=== PATIENT | female | born 1985 | race Caucasian/White ===

== ENCOUNTER 2016-06-15 08:30 | Inpatient (IN) | payer BC ==
--- NOTE | 2016-06-15 08:35 | PCM.LDHP ---
L&D History of Present Illness - General Date of Service: 06/15/16 Admit Problem/Dx: Patient Status Order with Admit Dx/Problem 06/15/16 08:34 Patient Status [ADT] Routine Patient Status: Refer to Observation Admission Diagnosis/Problem: Normal Reason for Admit: normal Nurse Unit Type: Labor and Delivery Admitting Physician: Charmaine Swift Attending Physician: Charmaine Swift Medicare 96 Hour Certification Statement: This Patient is Admitted for Inpatient Services and is Medically Appropriate and Meets Medical Necessity for Inpatient Admission. I Reasonably Expect the Patient Will Require Inpatient Services That Span a Period of Time Over 2 Midnights. My Rationale for Medically Necessary Inpatient Care Will Be Found in the Admission History & Physical and Progress Notes. I Reasonably Expect the Patient to be Discharged or Transferred Within 96 Hours After Admission to This [facility]. Admission Diagnosis/Problem Admission Diagnosis/Problem Normal Source of Information: Patient History Limitations: Reports: No limitations - History of Present Illness Introduction:: Patient is a 30 y/o at 38 1/7 wks who presents today with SROM. Occurred at about 0600 this morning. Some contractions, but overall these are mild. No other concerns. 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 (Approximate): Psychiatric History: Reports: Anxiety, Depression Endocrine/Metabolic History: Reports: Diabetes, gestational, Hypothyroidism - Past Surgical History GI Surgical History: Reports: Cholecystectomy Social & Family History - Family History Family Medical History: Noncontributory - Tobacco Use Smoking Status *Q: Never Smoker - Alcohol Use Alcohol Use History: No - Recreational Drug Use Recreational Drug Use: No H&P Review of Systems - Review of Systems: Review Of Systems: See Below General: Reports: no symptoms Pulmonary: Reports: No Symptoms Cardiovascular: Reports: no symptoms Gastrointestinal: Reports: No symptoms Genitourinary: Reports: no symptoms Musculoskeletal: Reports: no symptoms Neurological: Reports: No Symptoms L&D Exam - Exam Exam: See Below - OB Specific Contraction Intensity: Moderate movement: active heart tones: present heart tones per min: 140 Heart Rate (FHR) Variability: Moderate (6-25 bmp) Presentation: Vertex - Grimaldo Score Grimaldo Score Cervix Position: Midposition Grimaldo Score Consistency: Medium Grimaldo Score Effacement: 31-50% Grimaldo Score Dilation: 3-4 cm Grimaldo Score 's Station: -2 Grimaldo Score Total: 6 - Exam General: alert, oriented, cooperative Lungs: Clear to auscultation, Normal respiratory effort Cardiovascular: regular rate, regular rhythm Abdomen: soft Genitourinary: Normal external exam Extremities: normal inspection Skin: warm, dry, intact - Patient Data Result Diagrams: 06/15/16 08:44 - Problem List (1) 38 weeks gestation of SNOMED Code(s): 87161711 ICD Code: Z3A.38 - 38 WEEKS GESTATION OF Status: Acute Current Visit: Yes (2) SROM (spontaneous rupture of membranes) SNOMED Code(s): 276254164 ICD Code: [id number] - Status: Acute Current Visit: Yes (3) Hypothyroid SNOMED Code(s): 29571755 ICD Code: E03.9 - HYPOTHYROIDISM, UNSPECIFIED Status: Acute Current Visit : Yes Qualifiers: Hypothyroidism type: unspecified Qualified Code(s): E03.9 - Hypothyroidism , unspecified (4) Depression SNOMED Code(s): 36700009 ICD Code: F32.9 - MAJOR DEPRESSIVE DISORDER, SINGLE EPISODE, UNSPECIFIED Status: Acute Current Visit: Yes Qualifiers: Depression Type: major depressive disorder Active/Remission status: currently active Major depression episode severity: moderate (5) Gestational diabetes SNOMED Code(s): 30980972 ICD Code: O24.419 - GESTATIONAL DIABETES MELLITUS IN , UNSP CONTROL Status: Acute Current Visit: Yes Qualifiers: Gestational diabetes mellitus control: diet-controlled Trimester: third trimester Qualified Code(s): O24.410 - Gestational diabetes mellitus in , diet controlled Problem List Initiated/Reviewed/Updated: Yes Orders Last 24hrs: Active Orders 24 hr Category Date Time Status Patient Status [ADT] Routine ADT 06/15/16 08:34 Ordered Activity as Tolerated [RC] PFP Care 06/15/16 08:33 Ordered Communication Order [RC] ASDIRECTED Care 06/15/16 08:33 Ordered Heart Tones [RC] ASDIRECTED Care 06/15/16 08:34 Ordered Notify Provider [RC] PFP Care 06/15/16 08:33 Ordered Notify Provider [RC] PRN Care 06/15/16 08:33 Ordered Peripheral IV Care [RC] . DIRECTED Care 06/15/16 08:34 Ordered Vital Signs [RC] PER UNIT ROUTINE Care 06/15/16 08:33 Ordered Regular Diet [DIET] Diet 06/15/16 Lunch Ordered CBC W/O DIFF,HEMOGRAM [HEME] Stat Lab 06/15/16 08:33 Ordered TYPE AND SCREEN [BBK] Stat Lab 06/15/16 08:33 Ordered Lactated Ringers [Ringers, Lactated] 1,000 ml Med 06/15/16 08:45 Ordered IV ASDIRECTED Nalbuphine [Nubain] Med 06/15/16 08:33 Ordered 10 mg IVPUSH Q2H PRN Ondansetron [Zofran] Med 06/15/16 08:33 Ordered 4 mg IVPUSH Q4H PRN Oxytocin/Lactated Ringers [Pitocin in LR 10 Units/1,000 Med 06/15/16 08:45 Ordered ML] 10 unit in 1,000 ml IV TITRATE Sodium Chloride 0.9% [Saline Flush] Med 06/15/16 08:33 Ordered 10 ml FLUSH ASDIRECTED PRN Electronic Heart Tones Ext w TOCO [WOMSER] Oth 06/15/16 08:33 Ordered Routine Electronic Heart Tones Internal [WOMSER] Per Unit Oth 06/15/16 08:33 Ordered Routine Peripheral IV Insertion Adult [OM.PC] Routine Oth 06/15/16 08:33 Ordered Resuscitation Status Routine Resus Stat 06/15/16 08:33 Ordered Assessment/Plan Comment:: 30 y/o admitted at 38 1/7 wks with SROM * CBC and T&S * GBS negative, no need for antibiotics * Pain management per patient preference * Continue home Prozac and Synthroid * Blood sugars every 4 hours for GODMA1 * Anticipate
[2016-06-15] MEDS ORDERED: Ondansetron 4 MG/2 ML SDV IVPUSH PRN ×2 (08:41→10:22)
--- NOTE | 2016-06-15 09:52 | PCM.PREANE ---
Preanesthetic Assessment - Anesthesia/Transfusion/Family Hx Anesthesia History: Prior Anesthesia Without Reaction Transfusion History: No Prior Transfusion(s) - Physical Assessment O2 Sat by Pulse Oximetry: 100 Respiratory Rate: 16 Vital Signs: Last Vital Signs Temp 36.3 C 06/15/16 08:33 Pulse 92 06/15/16 08:33 Resp 16 06/15/16 08:33 BP 116/70 06/15/16 08:33 Pulse Ox 100 06/15/16 08:33 Height: 1.75 m Weight: 110.223 kg - Lab Values: Laboratory Last Values WBC 13.08 K/mm3 (3.98-10.04) H 06/15/16 08:44 RBC 5.15 M/mm3 (3.98-5.22) 06/15/16 08:44 Hgb 13.9 gm/L (11.2-15.7) 06/15/16 08:44 Hct 41.0 % (34.1-44.9) 06/15/16 08:44 MCV 79.6 fl (79.4-94.8) 06/15/16 08:44 MCH 27.0 pg (25.6-32.2) 06/15/16 08:44 MCHC 33.9 g/dl (32.2-35.5) 06/15/16 08:44 RDW Std Deviation 41.9 fL (36.4-46.3) 06/15/16 08:44 Plt Count 208 K/mm3 (182-369) 06/15/16 08:44 MPV 10.3 fl (9.4-12.3) 06/15/16 08:44 POC Glucose 128 mg/dL (70-105) H 06/15/16 08:42 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: Psychiatric History: Reports: Depression Endocrine/Metabolic History: Reports: Diabetes, gestational, Hypothyroidism - SUBSTANCE USE Smoking Status *Q: Never Smoker Second Hand Smoke Exposure: No Recreational Drug Use History: No - CURRENT (IN HOUSE) MEDS Current Meds: Current Medications Ephedrine Sulfate (Ephedrine Sulfate) 5 mg IVPUSH ASDIRECTED PRN PRN Reason: Hypotension Fentanyl (Sublimaze) 100 mcg EPIDUR Q3H PRN PRN Reason: Pain Fentanyl/Bupivacaine HCl (Fentanyl/Bupivacaine/Ns 2 Mcg-0.125% 100 Ml) 100 ml EPIDUR ASDIRECTED DARREN Lactated Ringer's (Ringers, Lactated) 1,000 mls @ 100 mls/hr IV ASDIRECTED DARREN Oxytocin/Lactated Ringer's (Pitocin In Lr 10 Units/1,000 Ml) 10 unit in 1,000 mls @ 500 mls/hr IV TITRATE DARREN PRN Reason: Protocol Nalbuphine HCl (Nubain) 10 mg IVPUSH Q2H PRN PRN Reason: Pain (moderate 4-6) Ondansetron HCl (Zofran) 4 mg IVPUSH Q4H PRN PRN Reason: Nausea/Vomiting Ondansetron HCl (Zofran) 4 mg IVPUSH ONETIME PRN PRN Reason: Nausea/Vomiting Sodium Chloride (Saline Flush) 10 ml FLUSH ASDIRECTED PRN PRN Reason: Keep Vein Open Preanesthetic Assessment - ANESTHESIA/TRANSFUSION/FAMILY HX Anesthesia/Transfusion History: No Prior Transfusion(s), Prior Anesthesia Type of Anesthesia Reaction: Denies: Allergy, Anesthesia Awareness, Excessive Somnolence, Excessive Nausea/Vomiting, Excessive Itching, Excessive Shivering, Malignant Hyperthermia, Malignant Hyperthermia, Family History, Pseudocholinesterase Deficiency, Pseudocholinesterase Deficiency, Family History of, Urinary Retention, Unknown, Other (see below) Family History of Anesthesia Reaction: No Intubation History: Unknown - REVIEW OF SYSTEMS Constitutional: Reports: no symptoms 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 placed on prednisone.) Cardiovascular: Reports: no symptoms GI: Reports: no symptoms Other: Reports: Diabetes (gestational DM AM 0700 LA=922), Thyroid Problems ( hypothyroid), Depression, Anxiety - PHYSICAL ASSESSMENT HR: 92 O2 Sat by Pulse Oximetry: 100 RR: 16 BP: 116/70 Temp: 36.3 C Vital Signs: Last Vital Signs Temp 36.3 C 06/15/16 08:33 Pulse 92 06/15/16 08:33 Resp 16 06/15/16 08:33 BP 116/70 06/15/16 08:33 Pulse Ox 100 06/15/16 08:33 Height: 1.75 m Weight: 110.223 kg NPO Status Date: 06/15/16 NPO Status Time: 08:00 ASA Class: 2 Mental Status: Alert & Oriented x3 Airway Class: Mallampati = 2 Dentition: Reports: Normal Dentition, [place](s), Car[place] Thyro-Mental Finger Breadths: 3 Mouth Opening Finger Breadths: 3 ROM/Head Extension: Full Respiratory Status: lungs clear to auscultation bilaterally Cardiovascular Status: regular rate & rhythm, normal S1, S2, no murmur, blood pressure WNL - LAB Values: Laboratory Last Values WBC 13.08 K/mm3 (3.98-10.04) H 06/15/16 08:44 RBC 5.15 M/mm3 (3.98-5.22) 06/15/16 08:44 Hgb 13.9 gm/L (11.2-15.7) 06/15/16 08:44 Hct 41.0 % (34.1-44.9) 06/15/16 08:44 MCV 79.6 fl (79.4-94.8) 06/15/16 08:44 MCH 27.0 pg (25.6-32.2) 06/15/16 08:44 MCHC 33.9 g/dl (32.2-35.5) 06/15/16 08:44 RDW Std Deviation 41.9 fL (36.4-46.3) 06/15/16 08:44 Plt Count 208 K/mm3 (182-369) 06/15/16 08:44 MPV 10.3 fl (9.4-12.3) 06/15/16 08:44 POC Glucose 128 mg/dL (70-105) H 06/15/16 08:42 Reviewed and noted. - ANESTHESIA PLAN Preop Beta Lizz: No Anesthesia Type Planned: Epidural - ACKNOWLEDGEMENTS Pt an Appropriate Candidate for the Planned Anesthesia: Yes Alternatives and Risks of Anesthesia Discussed w Pt/Guardian: Yes Pt/Guardian Understands and Agrees with Anesthesia Plan: Yes
[2016-06-15] MEDS ORDERED: Oxytocin/Lactated Ringers 10 UNIT/1,000 ML BAG IV SCH ×2 (10:00→16:15)
[2016-06-15] MEDS ORDERED: Sodium Chloride 0.9% 10 ML Syringe FLUSH PRN (10:00)
[2016-06-15] MEDS ORDERED: Nalbuphine 20 MG/1 ML Amp IVPUSH PRN (10:22)
[2016-06-15] MEDS ORDERED: fentaNYL 100 MCG/2 ML SDV EPIDUR PRN (10:22)
[2016-06-15] MEDS ORDERED: ePHEDrine 50 MG/ML SDV IVPUSH PRN (10:23)
[2016-06-15] MEDS: Lactated Ringers 1,000 ML IV SCH ×3 (10:25→12:49)
[2016-06-15] MEDS ORDERED: Bupivacaine/fentaNYL/NS 100 ML Bag EPIDUR SCH (10:30)
[2016-06-15] MEDS ORDERED: Acetaminophen 325 MG Tab PO PRN (19:52)
[2016-06-15] MEDS ORDERED: Lanolin 100% Cream 7 GM Tube TOP PRN (19:52)
[2016-06-15] MEDS ORDERED: Benzocaine/Menthol 20%-0.5% Spray 56 GM Canister TOP PRN (19:52)
[2016-06-15] MEDS ORDERED: Witch Hazel Medicated Pads 100/Jar TOP PRN (19:52)
[2016-06-15] MEDS ORDERED: Docusate Sodium 100 MG Cap PO PRN (19:52)
[2016-06-15] MEDS: Levothyroxine 50 MCG Tab PO SCH (21:04)
[2016-06-15] MEDS: Ibuprofen 600 MG Tab PO PRN (21:05)
--- NOTE | 2016-06-15 21:13 | PCM.DEL ---
L & D Note - General Info Date of Service: 06/15/16 - Delivery Note Labor: augmented by oxytocin Delivery Outcome: Livebirth Delivery Method: Spontaneous Vaginal Delivery Presentation: Right Occiput Posterior (ROP) Nuchal cord: present, reduced Anesthesia Type: Epidural Amniotic Fluid Description: Clear Episiotomy Type: None Laceration: 2nd degree, perineal Suture type: vicryl Suture size: 2-0 Placenta: intact, spontaneous Cord: 3 vessels Estimated blood loss: 250 Resuscitation needed: Yes [place]: suctioned, bulb syringe, stimulated, warmed, blanket used, warmer used Score 1 min: 2 Score 5 min: 5 Score 10 min: 8 Delivery Comments (Free Text/Narrative):: Patient found to be complete and began pushing. With maternal pushing effort head delivered from an ROP presentation. Nuchal cord present and reduced. With gentle downward traction the shoulders and body delivered. Infant placed on maternal abdomen. Cord clamped and cut. Cord blood obtained. Placenta allowed time to separate and then spontaneously expelled. Inspection of the perineum showed a 2nd degree laceration which was repaired with a 2-0 vicryl in the typical fashion. - Patient Data Vitals - most recent: Last Vital Signs Temp 36.3 C 06/15/16 09:56 Pulse 92 06/15/16 09:56 Resp 16 06/15/16 09:56 BP 116/70 06/15/16 09:56 Pulse Ox 100 06/15/16 09:56 Weight - most recent: 110.223 kg I&O - last 24 hours: Intake & Output 06/15/16 06/15/16 06/15/16 06:59 14:59 22:59 Intake Total 0 Balance 0 Lab Results last 24 hrs: Laboratory Results - last 24 hr 06/15/16 06/15/16 06/15/16 Range/Units 08:42 08:44 08:44 WBC 13.08 H (3.98-10.04) K/mm3 RBC 5.15 (3.98-5.22) M/mm3 Hgb 13.9 (11.2-15.7) gm/L Hct 41.0 (34.1-44.9) % MCV 79.6 (79.4-94.8) fl MCH 27.0 (25.6-32.2) pg MCHC 33.9 (32.2-35.5) g/dl RDW Std Deviation 41.9 (36.4-46.3) fL Plt Count 208 (182-369) K/mm3 MPV 10.3 (9.4-12.3) fl POC Glucose 128 H (70-105) mg/dL Blood Type A POSITIVE Gel Antibody Screen Negative 06/15/16 06/15/16 Range/Units 12:12 16:21 WBC (3.98-10.04) K/mm3 RBC (3.98-5.22) M/mm3 Hgb (11.2-15.7) gm/L Hct (34.1-44.9) % MCV (79.4-94.8) fl MCH (25.6-32.2) pg MCHC (32.2-35.5) g/dl RDW Std Deviation (36.4-46.3) fL Plt Count (182-369) K/mm3 MPV (9.4-12.3) fl POC Glucose 69 L 84 (70-105) mg/dL Blood Type Gel Antibody Screen Med Orders - Current: Current Medications Acetaminophen (Tylenol) 650 mg PO Q4H PRN PRN Reason: mild pain or fever Benzocaine/Menthol (Dermoplast Pain Relief [place]) 0 gm TOP ASDIRECTED PRN PRN Reason: Perineal Comfort Measure Last Admin: 06/15/16 21:05 Dose: 1 can Docusate Sodium (Colace) 100 mg PO BID PRN PRN Reason: Constipation Last Admin: 06/15/16 21:04 Dose: 100 mg Emollient Ointment (Lansinoh Hpa) 0 gm TOP ASDIRECTED PRN PRN Reason: Sore Nipples Fluoxetine HCl (Prozac) 60 mg PO BEDTIME DARREN Ibuprofen (Motrin) 600 mg PO Q4H PRN PRN Reason: Mild pain or fever Last Admin: 06/15/16 21:05 Dose: 600 mg Levothyroxine Sodium (Synthroid) 50 mcg PO BEDTIME DARREN Last Admin: 06/15/16 21:04 Dose: 50 mcg Witch Alecia (Tucks) 1 pad TOP ASDIRECTED PRN PRN Reason: Hemorrhoid pain Last Admin: 06/15/16 21:06 Dose: 1 jar Discontinued Medications Ephedrine Sulfate (Ephedrine Sulfate) 5 mg IVPUSH ASDIRECTED PRN PRN Reason: Hypotension Fentanyl (Sublimaze) 100 mcg EPIDUR Q3H PRN PRN Reason: Pain Last Admin: 06/15/16 11:10 Dose: 100 mcg Fentanyl/Bupivacaine HCl (Fentanyl/Bupivacaine/Ns 2 Mcg-0.125% 100 Ml) 100 ml EPIDUR ASDIRECTED DARREN Last Admin: 06/15/16 11:10 Dose: 100 ml Lactated Ringer's (Ringers, Lactated) 1,000 mls @ 100 mls/hr IV ASDIRECTED DARREN Last Admin: 06/15/16 12:49 Dose: 100 mls/hr Oxytocin/Lactated Ringer's (Pitocin In Lr 10 Units/1,000 Ml) 10 unit in 1,000 mls @ 500 mls/hr IV TITRATE DARREN PRN Reason: Protocol Oxytocin/Lactated Ringer's (Pitocin In Lr 10 Units/1,000 Ml) 10 unit in 1,000 mls @ 12 mls/hr IV TITRATE DARREN; 2 MUNITS/MIN PRN Reason: Protocol Last Titration: 06/15/16 18:40 Dose: 0 munits/min, 0 mls/hr Nalbuphine HCl (Nubain) 10 mg IVPUSH Q2H PRN PRN Reason: Pain (moderate 4-6) Ondansetron HCl (Zofran) 4 mg IVPUSH Q4H PRN PRN Reason: Nausea/Vomiting Ondansetron HCl (Zofran) 4 mg IVPUSH ONETIME PRN PRN Reason: Nausea/Vomiting Sodium Chloride (Saline Flush) 10 ml FLUSH ASDIRECTED PRN PRN Reason: Keep Vein Open - Problem List & Annotations (1) 38 weeks gestation of SNOMED Code(s): 07814775 Code(s): Z3A.38 - 38 WEEKS GESTATION OF Status: Acute Current Visit: Yes (2) SROM (spontaneous rupture of membranes) SNOMED Code(s): 145686300 Code(s): KSR1475 - Status: Acute Current Visit: Yes (3) Hypothyroid SNOMED Code(s): 33332731 Code(s): E03.9 - HYPOTHYROIDISM, UNSPECIFIED Status: Acute Current Visit : Yes Qualifiers: Hypothyroidism type: unspecified Qualified Code(s): E03.9 - Hypothyroidism , unspecified (4) Depression SNOMED Code(s): 18394434 Code(s): F32.9 - MAJOR DEPRESSIVE DISORDER, SINGLE EPISODE, UNSPECIFIED Status: Acute Current Visit: Yes Qualifiers: Depression Type: major depressive disorder Active/Remission status: currently active Major depression episode severity: moderate (5) Gestational diabetes SNOMED Code(s): 63152039 Code(s): O24.419 - GESTATIONAL DIABETES MELLITUS IN , UNSP CONTROL Status: Acute Current Visit: Yes Qualifiers: Gestational diabetes mellitus control: diet-controlled Trimester: third trimester Qualified Code(s): O24.410 - Gestational diabetes mellitus in , diet controlled (6) Vaginal delivery SNOMED Code(s): 777838620 Code(s): O80 - ENCOUNTER FOR FULL-TERM UNCOMPLICATED DELIVERY Status: Acute Current Visit: Yes - Problem List Review Problem List Initiated/Reviewed/Updated: Yes - My Orders Last 24 Hours: My Active Orders 06/15/16 08:33 Resuscitation Status Routine 06/15/16 08:34 Heart Tones [RC] ASDIRECTED 06/15/16 19:52 Activity as Tolerated [RC] PER UNIT ROUTINE Vital Signs [RC] ASDIRECTED Acetaminophen [Tylenol] 650 mg PO Q4H PRN Benzocaine/Menthol [Dermoplast Pain Relief [place]] See Dose Instructions TOP ASDIRECTED PRN Docusate Sodium [Colace] 100 mg PO BID PRN Ibuprofen [Motrin] 600 mg PO Q4H PRN Lanolin [Lansinoh HPA] See Dose Instructions TOP ASDIRECTED PRN Witch Alecia [Tucks] 1 pad TOP ASDIRECTED PRN Assess Lochia [WOMSER] Per Unit Routine Assess Uterine Involution [WOMSER] Per Unit Routine Breast Pump [WOMSER] Per Unit Routine Heat Therapy [OM.PC] PRN Ice Therapy [OM.PC] Per Unit Routine Perineal Care [OM.PC] Per Unit Routine Peripheral IV Discontinue [OM.PC] Routine Sitz Bath [OM.PC] Per Unit Routine 06/15/16 21:00 FLUoxetine [PROzac] 60 mg PO BEDTIME Levothyroxine [Synthroid] 50 mcg PO BEDTIME 06/15/16 Dinner Regular Diet [DIET] 06/16/16 05:00 Blood Glucose Check, Bedside [RC] AMPROC 06/16/16 19:52 Heat Therapy [OM.PC] PRN - Assessment Assessment:: 30 y/o G4 now P4 PPD#0 from at 38 1/7 wks - Plan Plan:: S/p * Continue home Prozac and Synthroid * Fasting blood sugar in AM for GODMA1, 2hr GTT at check * Routine cares * Encourage breast feeding * Discharge home in 1-2 days
[2016-06-15] MEDS: FLUoxetine 20 MG Cap PO SCH (21:40)
[2016-06-15] MEDS ORDERED: Bupivacaine 0.25% 10 ML SDV ONE (22:22)
[2016-06-16] MEDS: Ibuprofen 600 MG Tab PO PRN ×4 (05:20→18:49)
--- NOTE | 2016-06-16 06:45 | PCM.PNPP ---
- General Info Date of Service: 06/16/16 Functional Status: Reports: pain controlled, tolerating diet, ambulating, urinating - Review of Systems General: Reports: No Symptoms Pulmonary: Reports: no symptoms Cardiovascular: Reports: No Symptoms Gastrointestinal: Reports: No symptoms Genitourinary: Reports: no symptoms Musculoskeletal: Reports: no symptoms Neurological: Reports: No Symptoms - Patient Data Vital Signs - most recent: Last Vital Signs Temp 36.7 C 06/16/16 05:04 Pulse 71 06/16/16 05:04 Resp 16 06/16/16 05:04 BP 108/72 06/16/16 05:04 Pulse Ox 97 06/16/16 05:04 Weight - most recent: 110.223 kg I&O - last 24 hours: Intake & Output 06/15/16 06/15/16 06/16/16 14:59 22:59 06:59 Intake Total 0 500 Balance 0 500 Lab Results - last 24 hrs: Laboratory Results - last 24 hr 06/15/16 06/15/16 06/15/16 Range/Units 08:42 08:44 08:44 WBC 13.08 H (3.98-10.04) K/mm3 RBC 5.15 (3.98-5.22) M/mm3 Hgb 13.9 (11.2-15.7) gm/L Hct 41.0 (34.1-44.9) % MCV 79.6 (79.4-94.8) fl MCH 27.0 (25.6-32.2) pg MCHC 33.9 (32.2-35.5) g/dl RDW Std Deviation 41.9 (36.4-46.3) fL Plt Count 208 (182-369) K/mm3 MPV 10.3 (9.4-12.3) fl POC Glucose 128 H (70-105) mg/dL Blood Type A POSITIVE Gel Antibody Screen Negative 06/15/16 06/15/16 06/16/16 Range/Units 12:12 16:21 05:07 WBC (3.98-10.04) K/mm3 RBC (3.98-5.22) M/mm3 Hgb (11.2-15.7) gm/L Hct (34.1-44.9) % MCV (79.4-94.8) fl MCH (25.6-32.2) pg MCHC (32.2-35.5) g/dl RDW Std Deviation (36.4-46.3) fL Plt Count (182-369) K/mm3 MPV (9.4-12.3) fl POC Glucose 69 L 84 71 (70-105) mg/dL Blood Type Gel Antibody Screen Med Orders - Current: Current Medications Acetaminophen (Tylenol) 650 mg PO Q4H PRN PRN Reason: mild pain or fever Benzocaine/Menthol (Dermoplast Pain Relief [employer]) 0 gm TOP ASDIRECTED PRN PRN Reason: Perineal Comfort Measure Last Admin: 06/15/16 21:05 Dose: 1 can Docusate Sodium (Colace) 100 mg PO BID PRN PRN Reason: Constipation Last Admin: 06/15/16 21:04 Dose: 100 mg Emollient Ointment (Lansinoh Hpa) 0 gm TOP ASDIRECTED PRN PRN Reason: Sore Nipples Last Admin: 06/16/16 05:19 Dose: 1 tube Fluoxetine HCl (Prozac) 60 mg PO BEDTIME DARREN Last Admin: 06/15/16 21:40 Dose: 60 mg Ibuprofen (Motrin) 600 mg PO Q4H PRN PRN Reason: Mild pain or fever Last Admin: 06/16/16 05:20 Dose: 600 mg Levothyroxine Sodium (Synthroid) 50 mcg PO BEDTIME DARREN Last Admin: 06/15/16 21:04 Dose: 50 mcg Witch Alecia (Tucks) 1 pad TOP ASDIRECTED PRN PRN Reason: Hemorrhoid pain Last Admin: 06/15/16 21:06 Dose: 1 jar Discontinued Medications Ephedrine Sulfate (Ephedrine Sulfate) 5 mg IVPUSH ASDIRECTED PRN PRN Reason: Hypotension Fentanyl (Sublimaze) 100 mcg EPIDUR Q3H PRN PRN Reason: Pain Last Admin: 06/15/16 11:10 Dose: 100 mcg Fentanyl/Bupivacaine HCl (Fentanyl/Bupivacaine/Ns 2 Mcg-0.125% 100 Ml) 100 ml EPIDUR ASDIRECTED [facility] Last Admin: 06/15/16 11:10 Dose: 100 ml Lactated Ringer's (Ringers, Lactated) 1,000 mls @ 100 mls/hr IV ASDIRECTED [facility] Last Admin: 03/21/17 12:49 Dose: 100 mls/hr Oxytocin/Lactated Ringer's (Pitocin In Lr 10 Units/1,000 Ml) 10 unit in 1,000 mls @ 500 mls/hr IV TITRATE DARREN PRN Reason: Protocol Oxytocin/Lactated Ringer's (Pitocin In Lr 10 Units/1,000 Ml) 10 unit in 1,000 mls @ 12 mls/hr IV TITRATE DARREN; 2 MUNITS/MIN PRN Reason: Protocol Last Titration: 06/15/16 18:40 Dose: 0 munits/min, 0 mls/hr Nalbuphine HCl (Nubain) 10 mg IVPUSH Q2H PRN PRN Reason: Pain (moderate 4-6) Ondansetron HCl (Zofran) 4 mg IVPUSH Q4H PRN PRN Reason: Nausea/Vomiting Ondansetron HCl (Zofran) 4 mg IVPUSH ONETIME PRN PRN Reason: Nausea/Vomiting Sodium Chloride (Saline Flush) 10 ml FLUSH ASDIRECTED PRN PRN Reason: Keep Vein Open - Interaction Disposition, : in Room with Family Interaction: Holding Infant Feeding: Breastfed Infant; Nursed Well Support Person: - Recovery Exam Fundal Tone: Firm Fundal Level: 1 Fingerbreadths Above Umbilicus Fundal Placement: Midline Lochia Amount: Small Lochia Color: Rubra/Red Perineum Description: Edematous Episiotomy/Laceration: Approximated Bladder Status: Voiding Urinary Elimination: Voided - Exam General: alert, oriented, cooperative Abdomen: soft, no tenderness Extremities: no edema Skin: warm, dry, intact - Problem List & Annotations (1) 38 weeks gestation of SNOMED Code(s): 23421335 Code(s): Z3A.38 - 38 WEEKS GESTATION OF Status: Acute Current Visit: Yes (2) SROM (spontaneous rupture of membranes) SNOMED Code(s): 705859388 Code(s): EYA4679 - Status: Acute Current Visit: Yes (3) Hypothyroid SNOMED Code(s): 95608482 Code(s): E03.9 - HYPOTHYROIDISM, UNSPECIFIED Status: Acute Current Visit : Yes Qualifiers: Hypothyroidism type: unspecified Qualified Code(s): E03.9 - Hypothyroidism , unspecified (4) Depression SNOMED Code(s): 57554517 Code(s): F32.9 - MAJOR DEPRESSIVE DISORDER, SINGLE EPISODE, UNSPECIFIED Status: Acute Current Visit: Yes Qualifiers: Depression Type: major depressive disorder Active/Remission status: currently active Major depression episode severity: moderate (5) Gestational diabetes SNOMED Code(s): 19956287 Code(s): O24.419 - GESTATIONAL DIABETES MELLITUS IN , UNSP CONTROL Status: Acute Current Visit: Yes Qualifiers: Gestational diabetes mellitus control: diet-controlled Trimester: third trimester Qualified Code(s): O24.410 - Gestational diabetes mellitus in , diet controlled (6) Vaginal delivery SNOMED Code(s): 579304153 Code(s): O80 - ENCOUNTER FOR FULL-TERM UNCOMPLICATED DELIVERY Status: Acute Current Visit: Yes - Problem List Review Problem List Initiated/Reviewed/Updated: Yes - My Orders Last 24 Hours: My Active Orders 06/15/16 08:33 Resuscitation Status Routine 06/15/16 08:34 Heart Tones [RC] ASDIRECTED 06/15/16 19:52 Activity as Tolerated [RC] PER UNIT ROUTINE Vital Signs [RC] ASDIRECTED Acetaminophen [Tylenol] 650 mg PO Q4H PRN Benzocaine/Menthol [Dermoplast Pain Relief [employer]] See Dose Instructions TOP ASDIRECTED PRN Docusate Sodium [Colace] 100 mg PO BID PRN Ibuprofen [Motrin] 600 mg PO Q4H PRN Lanolin [Lansinoh HPA] See Dose Instructions TOP ASDIRECTED PRN Witch Alecia [Tucks] 1 pad TOP ASDIRECTED PRN Assess Lochia [WOMSER] Per Unit Routine Assess Uterine Involution [WOMSER] Per Unit Routine Breast Pump [WOMSER] Per Unit Routine Heat Therapy [OM.PC] PRN Ice Therapy [OM.PC] Per Unit Routine Perineal Care [OM.PC] Per Unit Routine Peripheral IV Discontinue [OM.PC] Routine Sitz Bath [OM.PC] Per Unit Routine 06/15/16 21:00 FLUoxetine [PROzac] 60 mg PO BEDTIME Levothyroxine [Synthroid] 50 mcg PO BEDTIME 06/15/16 Dinner Regular Diet [DIET] 06/16/16 19:52 Heat Therapy [OM.PC] PRN - Assessment Assessment:: 30 y/o G4 now P4 PPD#1 from at 38 1/7 wks - Plan Plan:: S/p * Continue home Prozac and Synthroid * 2hr GTT at check * Routine cares * Encourage breast feeding * Discharge home tomorrow
--- NOTE | 2016-06-16 09:07 | PCM48HPAN ---
Post Anesthesia Note - EVALUATION WITHIN 48HRS OF ANESTHETIC Vital Signs in Normal Range: Yes Patient Participated in Evaluation: Yes Respiratory Function Stable: Yes Airway Patent: Yes Cardiovascular Function Stable: Yes Hydration Status Stable: Yes Pain Control Satisfactory: Yes Nausea and Vomiting Control Satisfactory: Yes Mental Status Recovered: Yes - COMMENTS/OBSERVATIONS Free Text/Narrative:: Pt reports Epidural worked well. Epidural completely resolved. some soreness at site. Pt denies fever, chills, nausea,vomiting, or headache. ambulating, using restroom, and taking p.o. without problem.
[2016-06-16] MEDS: Levothyroxine 50 MCG Tab PO SCH (21:30)
[2016-06-16] MEDS: Acetaminophen/Codeine 300-30 MG Tab PO PRN (21:39)
[2016-06-16] MEDS: FLUoxetine 20 MG Cap PO SCH (21:43)
[2016-06-17] MEDS: Acetaminophen/Codeine 300-30 MG Tab PO PRN ×2 (03:47→13:34)
--- NOTE | 2016-06-17 06:32 | PCM.PNPP ---
- General Info Date of Service: 06/17/16 Functional Status: Reports: pain controlled, tolerating diet, ambulating, urinating - Review of Systems General: Reports: No Symptoms Pulmonary: Reports: no symptoms Cardiovascular: Reports: No Symptoms Gastrointestinal: Reports: No symptoms Genitourinary: Reports: no symptoms Musculoskeletal: Reports: no symptoms - Patient Data Vital Signs - most recent: Last Vital Signs Temp 36.5 C 06/16/16 20:21 Pulse 86 06/16/16 20:21 Resp 16 06/16/16 20:21 BP 99/73 06/16/16 20:00 Pulse Ox 97 06/16/16 20:21 Weight - most recent: 110.223 kg I&O - last 24 hours: Intake & Output 06/16/16 06/16/16 06/17/16 14:59 22:59 06:59 Intake Total 120 480 Balance 120 480 Med Orders - Current: Current Medications Acetaminophen (Tylenol) 650 mg PO Q4H PRN PRN Reason: mild pain or fever Acetaminophen/Codeine Phosphate (Tylenol With Codeine No.3 300mg/30mg) 2 tab PO Q6H PRN PRN Reason: Pain Last Admin: 06/17/16 03:47 Dose: 2 tab Benzocaine/Menthol (Dermoplast Pain Relief [place]) 0 gm TOP ASDIRECTED PRN PRN Reason: Perineal Comfort Measure Last Admin: 06/15/16 21:05 Dose: 1 can Docusate Sodium (Colace) 100 mg PO BID PRN PRN Reason: Constipation Last Admin: 06/15/16 21:04 Dose: 100 mg Emollient Ointment (Lansinoh Hpa) 0 gm TOP ASDIRECTED PRN PRN Reason: Sore Nipples Last Admin: 06/16/16 05:19 Dose: 1 tube Fluoxetine HCl (Prozac) 60 mg PO BEDTIME DARREN Last Admin: 06/16/16 21:43 Dose: 60 mg Ibuprofen (Motrin) 600 mg PO Q4H PRN PRN Reason: Mild pain or fever Last Admin: 06/16/16 18:49 Dose: 600 mg Levothyroxine Sodium (Synthroid) 50 mcg PO BEDTIME DARREN Last Admin: 06/16/16 21:30 Dose: 50 mcg Witch Alecia (Tucks) 1 pad TOP ASDIRECTED PRN PRN Reason: Hemorrhoid pain Last Admin: 06/15/16 21:06 Dose: 1 jar Discontinued Medications Bupivacaine HCl (Sensorcaine-Mpf 0.25%) 10 ml .ROUTE .STK-MED ONE Stop: 06/15/16 22:23 Ephedrine Sulfate (Ephedrine Sulfate) 5 mg IVPUSH ASDIRECTED PRN PRN Reason: Hypotension Fentanyl (Sublimaze) 100 mcg EPIDUR Q3H PRN PRN Reason: Pain Last Admin: 06/15/16 11:10 Dose: 100 mcg Fentanyl/Bupivacaine HCl (Fentanyl/Bupivacaine/Ns 2 Mcg-0.125% 100 Ml) 100 ml EPIDUR ASDIRECTED DARREN Last Admin: 06/15/16 11:10 Dose: 100 ml Lactated Ringer's (Ringers, Lactated) 1,000 mls @ 100 mls/hr IV ASDIRECTED DARREN Last Admin: 06/15/16 12:49 Dose: 100 mls/hr Oxytocin/Lactated Ringer's (Pitocin In Lr 10 Units/1,000 Ml) 10 unit in 1,000 mls @ 500 mls/hr IV TITRATE DARREN PRN Reason: Protocol Oxytocin/Lactated Ringer's (Pitocin In Lr 10 Units/1,000 Ml) 10 unit in 1,000 mls @ 12 mls/hr IV TITRATE DARREN; 2 MUNITS/MIN PRN Reason: Protocol Last Titration: 06/15/16 18:40 Dose: 0 munits/min, 0 mls/hr Nalbuphine HCl (Nubain) 10 mg IVPUSH Q2H PRN PRN Reason: Pain (moderate 4-6) Ondansetron HCl (Zofran) 4 mg IVPUSH Q4H PRN PRN Reason: Nausea/Vomiting Ondansetron HCl (Zofran) 4 mg IVPUSH ONETIME PRN PRN Reason: Nausea/Vomiting Sodium Chloride (Saline Flush) 10 ml FLUSH ASDIRECTED PRN PRN Reason: Keep Vein Open - Interaction Disposition, : in Room with Family Interaction: Holding Infant Infant Feeding: Breastfed ; Nursed Well Support Person: - Recovery Exam Fundal Tone: Firm Fundal Level: 1 Fingerbreadths Below Umbilicus Fundal Placement: Midline Lochia Amount: Small, Moderate Lochia Color: Rubra/Red Perineum Description: Edematous Episiotomy/Laceration: Approximated Bladder Status: Voiding Urinary Elimination: Voided - Exam General: alert, oriented, cooperative Abdomen: soft, no tenderness Extremities: no edema Skin: warm, dry, intact - Problem List & Annotations (1) 38 weeks gestation of SNOMED Code(s): 38738088 Code(s): Z3A.38 - 38 WEEKS GESTATION OF Status: Acute Current Visit: Yes (2) SROM (spontaneous rupture of membranes) SNOMED Code(s): 759769116 Code(s): KBS0907 - Status: Acute Current Visit: Yes (3) Hypothyroid SNOMED Code(s): 98655460 Code(s): E03.9 - HYPOTHYROIDISM, UNSPECIFIED Status: Acute Current Visit : Yes Qualifiers: Hypothyroidism type: unspecified Qualified Code(s): E03.9 - Hypothyroidism , unspecified (4) Depression SNOMED Code(s): 97083580 Code(s): F32.9 - MAJOR DEPRESSIVE DISORDER, SINGLE EPISODE, UNSPECIFIED Status: Acute Current Visit: Yes Qualifiers: Depression Type: major depressive disorder Active/Remission status: currently active Major depression episode severity: moderate (5) Gestational diabetes SNOMED Code(s): 08298878 Code(s): O24.419 - GESTATIONAL DIABETES MELLITUS IN , UNSP CONTROL Status: Acute Current Visit: Yes Qualifiers: Gestational diabetes mellitus control: diet-controlled Trimester: third trimester Qualified Code(s): O24.410 - Gestational diabetes mellitus in , diet controlled (6) Vaginal delivery SNOMED Code(s): 016270024 Code(s): O80 - ENCOUNTER FOR FULL-TERM UNCOMPLICATED DELIVERY Status: Acute Current Visit: Yes - Problem List Review Problem List Initiated/Reviewed/Updated: Yes - My Orders Last 24 Hours: My Active Orders 06/16/16 19:52 Heat Therapy [OM.PC] PRN 06/16/16 21:31 Acetaminophen/Codeine [Tylenol with Codeine No.3 300MG/30MG] 2 tab PO Q6H PRN - Assessment Assessment:: 30 y/o G4 now P4 PPD#2 from at 38 1/7 wks - Plan Plan:: S/p * Continue home Prozac and Synthroid * 2hr GTT at check * Routine cares * T3 for pelvic pain * Encourage breast feeding * Discharge home today
--- NOTE | 2016-06-17 06:33 | PCM.DCSUM1 ---
Discharge Summary - Discharge Data Discharge Date: 06/17/16 Discharge Disposition: Home, Self-Care 01 Condition: Good - Discharge Diagnosis/Problem(s) (1) 38 weeks gestation of SNOMED Code(s): 41314541 ICD Code: Z3A.38 - 38 WEEKS GESTATION OF Status: Acute Current Visit: Yes (2) SROM (spontaneous rupture of membranes) SNOMED Code(s): 638487361 ICD Code: UHV9600 - Status: Acute Current Visit: Yes (3) Hypothyroid SNOMED Code(s): 64301530 ICD Code: E03.9 - HYPOTHYROIDISM, UNSPECIFIED Status: Acute Current Visit : Yes Qualifiers: Hypothyroidism type: unspecified Qualified Code(s): E03.9 - Hypothyroidism , unspecified (4) Depression SNOMED Code(s): 70746319 ICD Code: F32.9 - MAJOR DEPRESSIVE DISORDER, SINGLE EPISODE, UNSPECIFIED Status: Acute Current Visit: Yes Qualifiers: Depression Type: major depressive disorder Active/Remission status: currently active Major depression episode severity: moderate (5) Gestational diabetes SNOMED Code(s): 84040273 ICD Code: O24.419 - GESTATIONAL DIABETES MELLITUS IN , UNSP CONTROL Status: Acute Current Visit: Yes Qualifiers: Gestational diabetes mellitus control: diet-controlled Trimester: third trimester Qualified Code(s): O24.410 - Gestational diabetes mellitus in , diet controlled (6) Vaginal delivery SNOMED Code(s): 295491398 ICD Code: O80 - ENCOUNTER FOR FULL-TERM UNCOMPLICATED DELIVERY Status: Acute Current Visit: Yes - Patient Summary/Data Complications: None Consults: None Recommended Follow-up Testing/Procedures: Follow up in 5-6 weeks for check Hospital Course: 30-year-old presented at 38 and 1/7 weeks with spontaneous rupture of membranes. She did have to be augmented with Pitocin. She progressed well to complete dilation and underwent an uncomplicated vaginal delivery. Throughout her labor process her blood sugars remained normal. she did well and was meeting all goals by post day #2 and was thus discharged to home. Plan for her to return to clinic in approximately 6 weeks for routine check and 2hr GTT. - Patient Instructions Diet: Regular Diet as Tolerated Activity: As Tolerated Driving: May Drive Today Showering/Bathing: May Shower Showering/Bathing, Other: May Bathe Notify Provider of: Fever, Increased Pain, Drainage, Nausea and/or Vomiting - Discharge Plan Prescriptions/Med Rec: Acetaminophen/Codeine [Tylenol with Codeine No.3 300MG/30MG] 2 tab PO Q6H PRN # 20 tablet PRN Reason: Pain Home Medications: Home Meds FLUoxetine HCl [Prozac] 60 mg PO DAILY 06/15/16 [History] Folic Acid 1 mg PO BEDTIME 06/15/16 [History] Levothyroxine Sodium [Levo-T] 50 mcg PO DAILY 06/15/16 [History] PNV95/Ferrous Fumarate/FA [ Tablet] 1 each PO DAILY 06/15/16 [History] Docusate Sodium [Colace] 100 mg PO BID PRN #0 cap 06/16/16 [Rx] Ibuprofen [IJD: Ibuprofen] 600 mg PO Q4H PRN #0 tablet 06/16/16 [Rx] Acetaminophen/Codeine [Tylenol with Codeine No.3 300MG/30MG] 2 tab PO Q6H PRN # 20 tablet 06/17/16 [Rx] Patient Handouts: Depression and Baby Blues, Home Care Instructions for Mom, Breast Pumping Tips, [id number], Challenges and Solutions Referrals: Charmaine Swift MD [Primary Care Provider] - (Call to schedule appointment in 5-[address] Swift. ) - Discharge Summary/Plan Comment DC Time >30 min.: No - Patient Data Vitals - Most Recent: Last Vital Signs Temp 36.5 C 06/16/16 20:21 Pulse 86 06/16/16 20:21 Resp 16 06/16/16 20:21 BP 99/73 06/16/16 20:00 Pulse Ox 97 06/16/16 20:21 Weight - Most Recent: 110.223 kg I&O - Last 24 hours: Intake & Output 06/16/16 06/16/16 06/17/16 14:59 22:59 06:59 Intake Total 120 480 Balance 120 480 Med Orders - Current: Current Medications Acetaminophen (Tylenol) 650 mg PO Q4H PRN PRN Reason: mild pain or fever Acetaminophen/Codeine Phosphate (Tylenol With Codeine No.3 300mg/30mg) 2 tab PO Q6H PRN PRN Reason: Pain Last Admin: 06/17/16 03:47 Dose: 2 tab Benzocaine/Menthol (Dermoplast Pain Relief [place]) 0 gm TOP ASDIRECTED PRN PRN Reason: Perineal Comfort Measure Last Admin: 06/15/16 21:05 Dose: 1 can Docusate Sodium (Colace) 100 mg PO BID PRN PRN Reason: Constipation Last Admin: 06/15/16 21:04 Dose: 100 mg Emollient Ointment (Lansinoh Hpa) 0 gm TOP ASDIRECTED PRN PRN Reason: Sore Nipples Last Admin: 06/16/16 05:19 Dose: 1 tube Fluoxetine HCl (Prozac) 60 mg PO BEDTIME DARREN Last Admin: 06/16/16 21:43 Dose: 60 mg Ibuprofen (Motrin) 600 mg PO Q4H PRN PRN Reason: Mild pain or fever Last Admin: 06/16/16 18:49 Dose: 600 mg Levothyroxine Sodium (Synthroid) 50 mcg PO BEDTIME DARREN Last Admin: 06/16/16 21:30 Dose: 50 mcg Witch Alecia (Tucks) 1 pad TOP ASDIRECTED PRN PRN Reason: Hemorrhoid pain Last Admin: 06/15/16 21:06 Dose: 1 jar Discontinued Medications Bupivacaine HCl (Sensorcaine-Mpf 0.25%) 10 ml .ROUTE .[facility]-MED ONE Stop: 06/15/16 22:23 Ephedrine Sulfate (Ephedrine Sulfate) 5 mg IVPUSH ASDIRECTED PRN PRN Reason: Hypotension Fentanyl (Sublimaze) 100 mcg EPIDUR Q3H PRN PRN Reason: Pain Last Admin: 06/15/16 11:10 Dose: 100 mcg Fentanyl/Bupivacaine HCl (Fentanyl/Bupivacaine/Ns 2 Mcg-0.125% 100 Ml) 100 ml EPIDUR ASDIRECTED [facility] Last Admin: 06/15/16 11:10 Dose: 100 ml Lactated Ringer's (Ringers, Lactated) 1,000 mls @ 100 mls/hr IV ASDIRECTED [facility] Last Admin: 06/15/16 12:49 Dose: 100 mls/hr Oxytocin/Lactated Ringer's (Pitocin In Lr 10 Units/1,000 Ml) 10 unit in 1,000 mls @ 500 mls/hr IV TITRATE [facility] PRN Reason: Protocol Oxytocin/Lactated Ringer's (Pitocin In Lr 10 Units/1,000 Ml) 10 unit in 1,000 mls @ 12 mls/hr IV TITRATE DARREN; 2 MUNITS/MIN PRN Reason: Protocol Last Titration: 06/15/16 18:40 Dose: 0 munits/min, 0 mls/hr Nalbuphine HCl (Nubain) 10 mg IVPUSH Q2H PRN PRN Reason: Pain (moderate 4-6) Ondansetron HCl (Zofran) 4 mg IVPUSH Q4H PRN PRN Reason: Nausea/Vomiting Ondansetron HCl (Zofran) 4 mg IVPUSH ONETIME PRN PRN Reason: Nausea/Vomiting Sodium Chloride (Saline Flush) 10 ml FLUSH ASDIRECTED PRN PRN Reason: Keep Vein Open *Q Meaningful Use (DIS) - VTE *Q VTE Criteria *Q: - Stroke *Q Stroke Criteria *Q: - AMI *Q AMI Criteria *Q:
[2016-06-17] MEDS: Ibuprofen 600 MG Tab PO PRN (08:30)
[2016-06-17 09:55] VITALS: BP 114/82
== END 2016-06-17 13:45 | disposition home or self-care (01) | DRG 560 ==
LOC: JD.OBCHECK 08:30 → JD.OB 08:34 → OBSVTOIN 19:19 → JD.OB 19:19
PROVIDERS: ADMIT Obstetrics & Gynecology; ATTEND Obstetrics & Gynecology
PROC: 10E0XZZ Delivery of Products of Conception, External Approach (ICD-10-PCS; principal; 2016-06-15)
PROC: 0KQM0ZZ Repair Perineum Muscle, Open Approach (ICD-10-PCS; 2016-06-15)
PROC: 00HU33Z Insertion of Infusion Device into Spinal Canal, Percutaneous Approach (ICD-10-PCS; 2016-06-15)
PROC: 3E0R3CZ (ICD-10-PCS; 2016-06-15)
DX: O42.92 Full-term premature rupture of membranes, unspecified as to length of time between rupture and onset of labor (principal); O24.429 Gestational diabetes mellitus in childbirth, unspecified control; O99.284 Endocrine, nutritional and metabolic diseases complicating childbirth; E03.9 Hypothyroidism, unspecified; O70.1 Second degree perineal laceration during delivery; O69.81X0 Labor and delivery complicated by cord around neck, without compression, not applicable or unspecified; F32.9 Major depressive disorder, single episode, unspecified; Z3A.38 38 weeks gestation of pregnancy; Z37.0 Single live birth; Z88.1 Allergy status to other antibiotic agents; Z79.899 Other long term (current) drug therapy
CPT/HCPCS: 36415; 82962; 85027; 86850; 86900; 86901; A9270-GY; J2590; J3010; J7120

== ENCOUNTER 2017-11-24 12:03 | Emergency (ER) | payer BC ==
[2017-11-24 12:12] VITALS: BP 128/80
[2017-11-24] MEDS ORDERED: LORazepam 2 MG/ML SDV IVPUSH ONE ×2 (12:34→13:35)
[2017-11-24] MEDS ORDERED: Alum Hydrox/Mag Hydrox/Simeth 30 ML, Lidocaine 2% 15 ML PO ONE ×2 (12:34)
--- NOTE | 2017-11-24 12:46 | EDM.PDOC ---
ED HPI GENERAL MEDICAL PROBLEM - General Chief Complaint: Chest Pain Stated Complaint: CHEST PAIN Time Seen by Provider: 11/24/17 12:18 Source of Information: Reports: Patient History Limitations: Reports: No Limitations - History of Present Illness INITIAL COMMENTS - FREE TEXT/NARRATIVE: Patient is a 32-year-old female who presents ED with increasing anxiety, substernal chest discomfort that radiates into her neck and upper shoulders. Pain is constant worsened with anxiety, exertion, and taking a deep breath. She questions if she pulled her chest muscles. She has this tightness to her chest noted with increasing anxiety. Pain is also worsened with laying down. There is no acid reflux. No epigastric pain. She's been under a lot more stress recently. Her works long hours and she stays home taking care of her 4 kids. She has no support system for her. They did change her depression medications around this past May. She was taking Prozac and was switched to Lexapro. She has gained 50 pounds since and her anxiety has increased. She's been lacking motivation. Continues to have a difficult time in getting up every a.m, taking care of her kids, and performing normal adls. Pain currently is rated a 3 out of 10. She has no prior history of similar complaints. Pain present for the past 5 days. Their has been no recent long travel, hospitalization, hemoptysis, nor history of DVT/PE. Patient does not smoke nor take control. There is no 1st degree relatives with heart disease. Last menstrual cycle earlier this month. She has not been sexually active since her last menstrual cycle. She has appointment to see a psychiatrist Dec 23, 2017. Screening took place earlier today. 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 Denies: Fever, Chills HEENT: Reports: No Symptoms Respiratory: Reports: Shortness of Breath. Denies: Wheezing, Pleuritic Chest Pain, Cough, Sputum, Hemoptysis Cardiovascular: Reports: Chest Pain. Denies: Dyspnea on Exertion, Palpitations GI/Abdominal: Reports: No Symptoms Musculoskeletal: Reports: No Symptoms Skin: Reports: No Symptoms Neurological: Reports: No Symptoms Psychiatric: Reports: Anxiety, Depression. Denies: Agitation, Confusion, Cravings, Hallucinations, Homicidal Ideation, Mood Lability, Suicidal Ideation ED EXAM, GENERAL - Physical Exam Exam: See Below Exam Limited By: No Limitations General Appearance: Alert, WD/WN, No Apparent Distress Ears: Hearing Grossly Normal Nose: Normal Inspection Throat/Mouth: Normal Voice, No Airway Compromise Neck: Normal Inspection, Supple Respiratory/Chest: No Respiratory Distress, Lungs Clear, Normal Breath Sounds, No Accessory Muscle Use, Chest Non-Tender Cardiovascular: Normal Peripheral Pulses, Regular Rate, Rhythm, No Murmur Peripheral Pulses: 2+: Radial (L), Radial (R) GI/Abdominal: Normal Bowel Sounds, Soft, Non-Tender, No Organomegaly, No Distention Back Exam: Normal Inspection Extremities: Normal Inspection, Normal Range of Motion, Non-Tender, No Pedal Edema, Normal Capillary Refill Neurological: Alert, Oriented, CN II-XII Intact, Normal Cognition, No Motor/ Sensory Deficits Psychiatric: Normal Affect, Anxious, Depressed Mood, Tearful. No: Flat Affect Skin Exam: Warm, Dry, Intact, Normal Color, No Rash Course - Vital Signs Last Recorded V/S: Last Vital Signs Temp 97.7 F 11/24/17 12:09 Pulse 96 11/24/17 12:09 Resp 20 11/24/17 12:09 BP 128/80 11/24/17 12:09 Pulse Ox 100 11/24/17 12:09 - Orders/Labs/Meds Orders: Active Orders 24 hr Category Date Time Status EKG Documentation Completion [RC] STAT Care 11/24/17 12:34 Active Chest 1V Frontal [CR] Stat Exams 11/24/17 12:34 Taken UA W/MICROSCOPIC [URIN] Stat Lab 11/24/17 13:15 Ordered Labs: Laboratory Tests 11/24/17 11/24/17 11/24/17 Range/Units 12:14 12:15 12:15 WBC 9.33 (3.98-10.04) K/mm3 RBC 5.27 H (3.98-5.22) M/mm3 Hgb 14.1 (11.2-15.7) gm/L Hct 41.5 (34.1-44.9) % MCV 78.7 L (79.4-94.8) fl MCH 26.8 (25.6-32.2) pg MCHC 34.0 (32.2-35.5) g/dl RDW Std Deviation 37.7 (36.4-46.3) fL Plt Count 236 (182-369) K/mm3 MPV 9.6 (9.4-12.3) fl Neutrophils % (Manual) 67 H (40-60) % Band Neutrophils % 1 (0-10) % Lymphocytes % (Manual) 26 (20-40) % Atypical Lymphs % 0 % Monocytes % (Manual) 6 (2-10) % Eosinophils % (Manual) 0 L (0.7-5.8) % Basophils % (Manual) 0 L (0.1-1.2) Platelet Estimate Adequate RBC Morph Comment Normal Sodium 139 (136-145) mEq/L Potassium 3.6 (3.5-5.1) mEq/L Chloride 106 (98-107) mEq/L Carbon Dioxide 25 (21-32) mEq/L Anion Gap 11.6 (5-15) BUN 11 (7-18) mg/dL Creatinine 0.9 (0.55-1.02) mg/dL Est Cr Clr Drug Dosing 92.05 mL/min Estimated GFR (MDRD) > 60 (>60) mL/min BUN/Creatinine Ratio 12.2 L (14-18) Glucose 101 (74-106) mg/dL Calcium 8.6 (8.5-10.1) mg/dL Total Bilirubin 0.4 (0.2-1.0) mg/dL AST 8 L (15-37) U/L ALT 15 (14-59) U/L Alkaline Phosphatase 85 (46-116) U/L Troponin I (0.00-0.056) ng/mL C-Reactive Protein 1.5 H* (<1.0) mg/dL Total Protein 7.2 (6.4-8.2) g/dl Albumin 3.3 L (3.4-5.0) g/dl Globulin 3.9 gm/dL Albumin/Globulin Ratio 0.9 L (1-2) TSH 3rd Generation 1.077 (0.358-3.74) uIU/mL HCG, Qual Negative (NEGATIVE) 11/24/17 Range/Units 12:15 WBC (3.98-10.04) K/mm3 RBC (3.98-5.22) M/mm3 Hgb (11.2-15.7) gm/L Hct (34.1-44.9) % MCV (79.4-94.8) fl MCH (25.6-32.2) pg MCHC (32.2-35.5) g/dl RDW Std Deviation (36.4-46.3) fL Plt Count (182-369) K/mm3 MPV (9.4-12.3) fl Neutrophils % (Manual) (40-60) % Band Neutrophils % (0-10) % Lymphocytes % (Manual) (20-40) % Atypical Lymphs % % Monocytes % (Manual) (2-10) % Eosinophils % (Manual) (0.7-5.8) % Basophils % (Manual) (0.1-1.2) Platelet Estimate RBC Morph Comment Sodium (136-145) mEq/L Potassium (3.5-5.1) mEq/L Chloride (98-107) mEq/L Carbon Dioxide (21-32) mEq/L Anion Gap (5-15) BUN (7-18) mg/dL Creatinine (0.55-1.02) mg/dL Est Cr Clr Drug Dosing mL/min Estimated GFR (MDRD) (>60) mL/min BUN/Creatinine Ratio (14-18) Glucose (74-106) mg/dL Calcium (8.5-10.1) mg/dL Total Bilirubin (0.2-1.0) mg/dL AST (15-37) U/L ALT (14-59) U/L Alkaline Phosphatase (46-116) U/L Troponin I < 0.017 (0.00-0.056) ng/mL C-Reactive Protein (<1.0) mg/dL Total Protein (6.4-8.2) g/dl Albumin (3.4-5.0) g/dl Globulin gm/dL Albumin/Globulin Ratio (1-2) TSH 3rd Generation (0.358-3.74) uIU/mL HCG, Qual (NEGATIVE) Meds: Medications Discontinued Medications Generic Name Dose Route Start Last Admin Trade Name Mine PRN Reason Stop Dose Admin Al Hydroxide/Mg Hydroxide 30 0 ml 11/24/17 12:34 11/24/17 12:56 ml/ Lidocaine HCl 15 ml PO 11/24/17 12:35 45 ml ONETIME ONE Administration Lorazepam 0.5 mg 11/24/17 12:34 11/24/17 12:57 Ativan IVPUSH 11/24/17 12:35 0.5 mg ONETIME ONE Administration Lorazepam 0.5 mg 11/24/17 13:35 11/24/17 13:56 Ativan IVPUSH 11/24/17 13:36 0.5 mg ONETIME ONE Administration - Re-Assessments/Exams Free Text/Narrative Re-Assessment/Exam: IV established. Initial labs will include: CBC, chem 14, CRP, drug screen, troponin, TSH, UA, hCG, chest x-ray reviewed, and EKG. I believe all of her complaints are most likely this is related to anxiety. Patient stays at home taking care of 4 kids with no significant support system. worse a lot of hours. They've been modifying her medications as a May 2017. She has gained almost 50 lbs since changing medications. She is anxious and stressed. I have ordered gi cocktail and ativan 0.5mg IVP. PERC rule negative. EKG: Sinus rhythm. Labs reviewed: CBC and chemistry panel were essentially normal. CRP mildly elevated 1.5. Troponin less than 0.017. TSH within normal limits. HCG is negative. 1335 Reassessment, patient states the anxiety has not improved. Still has some chest tightness. VSS. is present. She is tearful. Ordered ativan 0.5mg IVP. Chest x-ray impression: Reviewed with Dr. Sy with no acute findings noted. Final interpretations pending. 11/24/17 14:21 reassessment, patient states she is feeling much more relaxed. States the tightness to her chest is relieving. She is not short of breath. Vital signs are stable. She is ready be discharged home. Discussed with pateint and family this is more likely related to anxiety and being stressed out. She agrees. She is on clonazepam and is recently refilled this medication. She'll continue to take as directed. She has appointment with her psychiatrist December 23. She will follow-up with her PCP in the meantime to discuss medication changes that may be of benefit between now and then. Patient was informed of the signs and symptoms to return back to the ED. She had no further questions or concerns and agreed with plan. Departure - Departure Time of Disposition: 14:32 Disposition: Home, Self-Care 01 Condition: Good Clinical Impression: Atypical chest pain, Anxiety and depression Instructions: Generalized Anxiety Disorder, Adult, Nonspecific Chest Pain, Living With Anxiety Referrals: Chris Lynch MD [Primary Care Provider] - Forms: ED Department Discharge Additional Instructions: No driving this evening since receiving a sedative medication while in the ED. All labs, EKG, and chest x-ray essentially normal. Suspect cause of chest tightness was associated with increased anxiety. Recent medication changes have not worked to your benefit. Please keep appointment with psychiatrist as scheduled for December [id number]. May follow up with PCP in the next week for reevaluation and potential medication changes that may be of benefit. Continue taking all your home medications as prescribed. Refrain from any alcohol use. Please return back to the ED if you develop any new or worsening symptoms. - My Orders Last 24 Hours: My Active Orders 11/24/17 12:34 EKG Documentation Completion [RC] STAT Chest 1V Frontal [CR] Stat 11/24/17 13:15 UA W/MICROSCOPIC [URIN] Stat - Assessment/Plan Last 24 Hours: My Active Orders 11/24/17 12:34 EKG Documentation Completion [RC] STAT Chest 1V Frontal [CR] Stat 11/24/17 13:15 UA W/MICROSCOPIC [URIN] Stat
== END 2017-11-24 14:45 | disposition home or self-care (01) ==
LOC: JD.ED 12:03
DX: R07.2 Precordial pain (principal); F41.9 Anxiety disorder, unspecified; F32.9 Major depressive disorder, single episode, unspecified; E03.9 Hypothyroidism, unspecified; Z88.1 Allergy status to other antibiotic agents; Z79.899 Other long term (current) drug therapy
CPT/HCPCS: 36415; 71045; 80053; 81001; 84443; 84484; 84703; 85007; 85027; 86140; 93005; 96374; 96376; 99285; A9270; J2060

== ENCOUNTER 2020-01-13 07:35 | Emergency (ER) | payer BC ==
[2020-01-13 07:45] VITALS: BP 128/116; PULSE 65
--- NOTE | 2020-01-13 07:51 | EDM.PDOC ---
ED HPI GENERAL MEDICAL PROBLEM - General Chief Complaint: Gastrointestinal Problem Stated Complaint: [facility] Time Seen by Provider: 01/13/20 07:45 - History of Present Illness INITIAL COMMENTS - FREE TEXT/NARRATIVE: 34-year-old female presents the emergency room after what sounds like a near syncopal event. The patient had an episode where she passed out trying to have a BM. Before this the patient thought she was constipated give herself an enema. She was unable to really hold it in. She had what sounds like an anxiety episode where she had all 4 extremities going numb and little bit of cramping in her fingers. Patient has a significant gastrointestinal history for having a gastric sleeve placed in September of this year. The patient admits that she really has not been drinking enough fluids. And she drinks some diet soft drinks. Patient denies any fevers or chills. No nausea or vomiting. - Related Data Allergies Allergy/AdvReac Type Severity Reaction Status Date / Time amoxicillin Allergy Severe Rash Verified 01/13/20 07:45 Home Meds: Home Meds Citalopram [Citalopram HBr] 20 mg PO DAILY 01/13/20 [History] Levothyroxine [Synthroid] 50 mcg PO DAILY 01/13/20 [History] Melatonin 5 mg PO BEDTIME 01/13/20 [History] rOPINIRole [Requip] 1 mg PO DAILY 01/13/20 [History] Past Medical History [employer] History: Reports: Psychiatric History: Reports: Anxiety, Depression Endocrine/Metabolic History: Reports: Diabetes, Gestational, Hypothyroidism - Past Surgical History GI Surgical History: Reports: Cholecystectomy Social & Family History - Family History Family Medical History: Noncontributory - Caffeine Use Caffeine Use: Reports: None ED ROS GENERAL - Review of Systems Review Of Systems: See Below Constitutional: Reports: No Symptoms, Other (With the episode this morning she had some light headedness and what sounds like anxiety with numbness in all 4 extremities.) Respiratory: Reports: No Symptoms Cardiovascular: Reports: No Symptoms GI/Abdominal: Reports: Constipation. Denies: Nausea, Vomiting Neurological: Reports: Other (Transient self resolved numbness in all 4 extremities) ED EXAM, GENERAL - Physical Exam Exam: See Below Exam Limited By: No Limitations General Appearance: Alert, No Apparent Distress, Obese, Other (Blood pressure the time of my exam was 122/73 vital signs stable) Head: Atraumatic, Normocephalic Neck: Normal Inspection, Supple, Non-Tender, Full Range of Motion. No: Lymphadenopathy (L), Lymphadenopathy (R) Respiratory/Chest: Lungs Clear, Normal Breath Sounds, No Accessory Muscle Use Cardiovascular: Regular Rate, Rhythm, No Edema, No Murmur GI/Abdominal: Normal Bowel Sounds, Soft, Non-Tender Back Exam: Normal Inspection. No: CVA Tenderness (L), CVA Tenderness (R) Neurological: Alert, Oriented, Normal Cognition #1 Interpretation EKG Date: 01/13/20 Rhythm: NSR [place]: Normal P-Wave: Present QRS: Normal ST-T: Normal QT: Normal Comparison: No Change (No change from October 2017) Course - Vital Signs Last Recorded V/S: Last Vital Signs Temp 36.1 C 01/13/20 07:42 Pulse 65 01/13/20 07:42 Resp 16 01/13/20 07:42 BP 128/116 H 01/13/20 07:42 Pulse Ox 100 01/13/20 07:42 - Orders/Labs/Meds Orders: Active Orders 24 hr Category Date Time Status EKG Documentation Completion [RC] STAT Care 01/13/20 07:44 Active - Re-Assessments/Exams Free Text/Narrative Re-Assessment/Exam: 01/13/20 08:11 Patient's EKG appears normal. Her exam is unrevealing. Discussed situation w ith the patient and she feels she can drink fluids well and will do this rather than get an IV at this point. So we have agreed to go ahead and discharge her back home. Departure - Departure Time of Disposition: 08:11 Disposition: Home, Self-Care 01 Clinical Impression: Constipation, Vasovagal syncope Clinical Impression: (Ruled Out): Syncope - Discharge Information Referrals: PCP,None [Primary Care Provider] - Forms: ED Department Discharge Additional Instructions: Return to the emergency room with any questions problems or worsening symptoms. As we discussed push lots of fluids. Avoid caffeinated beverages. Consider MiraLAX, half normal dose, if you continue to have problems with constipation. Follow-up with your regular healthcare provider and if needed have your thyroid rechecked. If you do not have a regular healthcare provider follow-up in the hospital clinic this week. [phone] Sepsis Event Note (ED) - Evaluation Sepsis Screening Result: No Definite Risk - Focused Exam Vital Signs: Vital Signs Temp Pulse Resp BP Pulse Ox 01/13/20 07:42 36.1 C 65 16 128/116 H 100 - My Orders Last 24 Hours: My Active Orders 01/13/20 07:44 EKG Documentation Completion [RC] STAT - Assessment/Plan Last 24 Hours: My Active Orders 01/13/20 07:44 EKG Documentation Completion [RC] STAT
== END 2020-01-13 08:30 | disposition home or self-care (01) ==
LOC: JD.ED 07:35
DX: R55 Syncope and collapse (principal); K59.00 Constipation, unspecified; F41.9 Anxiety disorder, unspecified; F32.9 Major depressive disorder, single episode, unspecified; E03.9 Hypothyroidism, unspecified; Z88.1 Allergy status to other antibiotic agents; Z79.899 Other long term (current) drug therapy
CPT/HCPCS: 93005; 93010; 99282; 99284-25